=== PATIENT | male | born 1960 | race Two or more races ===

== ENCOUNTER 2021-10-30 14:30 | Emergency (ER) | payer OTHER ==
[~2021-10-30] VITALS: Ht 182.9 cm; Wt 136.1 kg
[2021-10-30] MEDS ORDERED: cloNIDine HCL 0.1 MG TAB ONE (14:58)
[2021-10-30] MEDS ORDERED: cloNIDine HCL 0.1 MG TAB PO ONE (15:00)
[2021-10-30 19:13] VITALS: BP 132/96
== END 2021-10-30 19:17 | disposition home or self-care (01) ==
LOC: ER 14:30
DX: M79.89 Other specified soft tissue disorders (principal); I16.0 Hypertensive urgency; I10 Essential (primary) hypertension; Z90.49 Acquired absence of other specified parts of digestive tract
CPT/HCPCS: 93971